=== PATIENT | male | born 1995 | race Caucasian/White ===

== ENCOUNTER 2020-08-13 12:06 | Emergency (ER) | payer OTHER ==
[~2020-08-13] VITALS: Ht 177.8 cm; Wt 70.3 kg
--- NOTE | 2020-08-13 12:36 | NUR ---
Dr Zeng at the bedside for MSE.
[2020-08-13 12:45] VITALS: BP 119/92
[2020-08-13] MEDS ORDERED: SULF1TAB48 PO (12:54)
--- NOTE | 2020-08-13 12:57 | NUR ---
Patient discharged to home in stable condition. Written and verbal after care instructions given. Patient verbalizes understanding of instructions. Stressed follow up or return to ER for worsening s/s.
== END 2020-08-13 13:00 | disposition home or self-care (01) ==
LOC: ER 12:11
DX: L72.9 Follicular cyst of the skin and subcutaneous tissue, unspecified (principal); J45.909 Unspecified asthma, uncomplicated; Z87.892 Personal history of anaphylaxis; Z91.018 Allergy to other foods
CPT/HCPCS: A4663